=== PATIENT | male | born 1965 | race Caucasian/White ===

== ENCOUNTER 2021-01-11 16:26 | Observation (INO) | payer BC ==
[~2021-01-11] VITALS: Ht 170.2 cm; Wt 86.6 kg
[2021-01-11] MEDS ORDERED: HYDRALAZINE HCL 20 MG/ML VIAL IV STA (17:04)
[2021-01-11 17:45] LABS: BASOPHILS % 0.3 % (0.0-1.0); EOSINOPHILS # (AUTO) 0.1 (0.0-0.4); EOSINOPHILS % 1.4 % (0.0-6.0); HEMATOCRIT 47.3 % (38.2-49.6); HEMOGLOBIN 15.4 g/dL (14.0-18.0); LYMPHOCYTES # (AUTO) 2.8 (1.0-3.2); LYMPHOCYTES % 43.3 % (18.0-39.1); MEAN CORPUSCULAR HEMOGLOBIN 28.3 pg (28-32); MEAN CORPUSCULAR HGB CONC 32.6 g/dL (31-35); MEAN CORPUSCULAR VOLUME 86.8 fL (81-99); MONOCYTES # (AUTO) 0.5 (0.2-0.8); MONOCYTES % 7.3 % (4.4-11.3); NEUTROPHILS % 47.4 % (38.7-80.0); PLATELET COUNT 155 x10e3/uL (140-360); RED BLOOD COUNT 5.45 x10e6/uL (4.3-5.7); RED CELL DISTRIBUTION WIDTH 12.7 % (11.7-14.4)
[2021-01-11 18:00] LABS: ALBUMIN 4.1 g/dL (3.5-5.0); ALBUMIN/GLOBULIN RATIO 0.9 (0.8-2.0); ANION GAP 15.9 mmol/L (8-16); CALCIUM 9.3 mg/dL (8.4-10.2); CREATININE, SERUM 1.89 mg/dL (0.72-1.25); POTASSIUM 3.9 mmol/L (3.5-5.1)
[2021-01-11 18:07] LABS: CREATINE KINASE MB 1.6 ng/mL (0-5.0)
[2021-01-11] MEDS ORDERED: HYDRALAZINE HCL 20 MG/ML VIAL ONE (19:25)
[2021-01-11] MEDS ORDERED: MORPHINE SULFATE INJ 2 MG/ML SYR IV PRN (19:30)
[2021-01-11] MEDS ORDERED: SODIUM CHLORIDE FLUSH 10 ML SYR INJ PRN (19:30)
[2021-01-11] MEDS ORDERED: ONDANSETRON HCL INJ 2MG/ML 2ML 2 MG/ML VIAL IV PRN (19:30)
[2021-01-11] MEDS ORDERED: HYDRALAZINE HCL 20 MG/ML VIAL IV PRN (19:30)
[2021-01-11] MEDS ORDERED: HYDRALAZINE HCL 20 MG/ML VIAL IV NR (19:30)
[2021-01-11] MEDS ORDERED: ASPIRIN 81 MG CHEW TAB PO ONE (19:30)
[2021-01-11] MEDS ORDERED: DEXTROSE 50% SYRINGE 50 ML IV PRN (19:30)
[2021-01-11] MEDS: INSULIN REGULAR, HUMAN 100 UNIT/1 ML 3ML VIAL SQ SCH (20:57)
[2021-01-11 22:00] VITALS: BP 169/104
[2021-01-11 22:30] VITALS: BP 169/104
[2021-01-11] MEDS ORDERED: SODIUM CHLORIDE 0.45% 1,000 ML IV ONE (22:30)
[2021-01-11] MEDS: CARVEDILOL 3.125 MG TAB PO SCH (22:50)
[2021-01-11] MEDS ORDERED: TOUJEO SOL300 UNIT/1 SC (23:24)
[2021-01-11] MEDS ORDERED: METOPROLOL SUCC50 MG PO (23:24)
[2021-01-11] MEDS ORDERED: REVATIO20 MG PO (23:24)
[2021-01-11] MEDS ORDERED: ATORVASTATIN CA20 MG PO (23:24)
[2021-01-12] VITALS (15 sets, daily range): BP systolic 122–158; BP diastolic 78–105
[2021-01-12 00:39] LABS: BASOPHILS % 0.5 % (0.0-1.0); EOSINOPHILS # (AUTO) 0.1 (0.0-0.4); EOSINOPHILS % 1.8 % (0.0-6.0); HEMATOCRIT 44.8 % (38.2-49.6); HEMOGLOBIN 14.6 g/dL (14.0-18.0); LYMPHOCYTES # (AUTO) 2.3 (1.0-3.2); LYMPHOCYTES % 37.2 % (18.0-39.1); MEAN CORPUSCULAR HEMOGLOBIN 27.4 pg (28-32); MEAN CORPUSCULAR HGB CONC 32.6 g/dL (31-35); MEAN CORPUSCULAR VOLUME 84.1 fL (81-99); MONOCYTES # (AUTO) 0.6 (0.2-0.8); MONOCYTES % 9.8 % (4.4-11.3); NEUTROPHILS # (AUTO) 3.1 (2.1-6.9); NEUTROPHILS % 50.5 % (38.7-80.0); PLATELET COUNT 145 x10e3/uL (140-360); RED BLOOD COUNT 5.33 x10e6/uL (4.3-5.7); RED CELL DISTRIBUTION WIDTH 12.9 % (11.7-14.4)
[2021-01-12 01:06] LABS: CREATINE KINASE MB 1.2 ng/mL (0-5.0)
[2021-01-12 01:21] LABS: ALBUMIN 3.5 g/dL (3.5-5.0); ALBUMIN/GLOBULIN RATIO 0.8 (0.8-2.0); ANION GAP 15.6 mmol/L (8-16); CALCIUM 8.9 mg/dL (8.4-10.2); CHOL/HDL RATIO 8.9 (3.9-4.7); CREATININE, SERUM 1.66 mg/dL (0.72-1.25); POTASSIUM 3.6 mmol/L (3.5-5.1)
[2021-01-12] MEDS: INSULIN REGULAR, HUMAN 100 UNIT/1 ML 3ML VIAL SQ SCH ×4 (07:30→21:44)
[2021-01-12] MEDS: CARVEDILOL 3.125 MG TAB PO SCH ×2 (09:20→18:48)
[2021-01-12] MEDS: ASPIRIN 81 MG ENTERIC COATED PO SCH (09:20)
[2021-01-12] MEDS: SODIUM CHLORIDE 0.9% 1000ML 1,000 ML IV SCH ×2 (10:30→21:00)
[2021-01-12] MEDS ORDERED: HEPARIN SOD (PORCINE) 1000 UNIT/ML 30ML ONE (10:32)
[2021-01-12] MEDS ORDERED: LIDOCAINE HCL 2% LOCAL 20 ML VIAL ONE (10:32)
[2021-01-12] MEDS ORDERED: IOPAMIDOL 370 MG/ML 200 ML INFUS..BTL INJ ONE (10:32)
[2021-01-12] MEDS ORDERED: FENTANYL CITRATE/PF 100MCG/2 ML INJ ONE (10:32)
[2021-01-12] MEDS ORDERED: MIDAZOLAM HCL 2 MG/2 ML VIAL ONE (10:32)
[2021-01-12] MEDS ORDERED: NITROGLYCERIN/D5W 200 MCG/ML 250 ML ONE (10:33)
[2021-01-12] MEDS ORDERED: HEPARIN SOD/SOD CHLORIDE 2,000 ML ONE (10:33)
[2021-01-12] MEDS ORDERED: HYDRALAZINE HCL 20 MG/ML VIAL ONE (11:12)
[2021-01-12] MEDS ORDERED: INSULIN GLARGINE 100 UNITS/ML VIAL SQ SCH (21:00)
[2021-01-12] MEDS ORDERED: ATORVASTATIN 40 MG TAB PO SCH (21:00)
[2021-01-12] MEDS ORDERED: ATORVASTATIN 20 MG TAB PO SCH (21:00)
[2021-01-13 01:16] VITALS: BP 160/95
[2021-01-13] MEDS: SODIUM CHLORIDE 0.9% 1000ML 1,000 ML IV SCH (04:59)
[2021-01-13 05:53] VITALS: BP 147/83
[2021-01-13 06:32] LABS: BASOPHILS % 0.1 % (0.0-1.0); EOSINOPHILS # (AUTO) 0.1 (0.0-0.4); EOSINOPHILS % 0.6 % (0.0-6.0); HEMATOCRIT 45.4 % (38.2-49.6); HEMOGLOBIN 14.7 g/dL (14.0-18.0); LYMPHOCYTES # (AUTO) 2.2 (1.0-3.2); MEAN CORPUSCULAR HEMOGLOBIN 27.6 pg (28-32); MEAN CORPUSCULAR HGB CONC 32.4 g/dL (31-35); MEAN CORPUSCULAR VOLUME 85.2 fL (81-99); MONOCYTES # (AUTO) 0.9 (0.2-0.8); MONOCYTES % 10.2 % (4.4-11.3); NEUTROPHILS # (AUTO) 5.4 (2.1-6.9); NEUTROPHILS % 62.8 % (38.7-80.0); PLATELET COUNT 141 x10e3/uL (140-360); RED BLOOD COUNT 5.33 x10e6/uL (4.3-5.7)
[2021-01-13 06:47] LABS: ALBUMIN 3.3 g/dL (3.5-5.0); ALBUMIN/GLOBULIN RATIO 0.8 (0.8-2.0); ANION GAP 11.9 mmol/L (8-16); CALCIUM 8.7 mg/dL (8.4-10.2); CREATININE, SERUM 1.86 mg/dL (0.72-1.25); POTASSIUM 3.9 mmol/L (3.5-5.1)
[2021-01-13 07:13] LABS: THYROID STIMULATING HORMONE 0.904 uIU/mL (0.350-4.940)
[2021-01-13 08:00] VITALS: BP 156/85
[2021-01-13 08:52] VITALS: BP 156/85
[2021-01-13] MEDS ORDERED: CARVEDILOL 3.125 MG TAB PO SCH (09:00)
[2021-01-13] MEDS: ASPIRIN 81 MG ENTERIC COATED PO SCH (09:10)
[2021-01-13] MEDS: INSULIN REGULAR, HUMAN 100 UNIT/1 ML 3ML VIAL SQ SCH ×2 (09:14→13:52)
[2021-01-13] MEDS ORDERED: Atorvastatin PO (09:57)
[2021-01-13] MEDS ORDERED: COREG12.5 MG PO (09:57)
[2021-01-13 12:54] VITALS: BP 140/96
[2021-01-13 14:25] LABS: ANION GAP 13.2 mmol/L (8-16); CALCIUM 8.6 mg/dL (8.4-10.2); CREATININE, SERUM 1.88 mg/dL (0.72-1.25); POTASSIUM 4.2 mmol/L (3.5-5.1)
[2021-01-13] MEDS ORDERED: CARVEDILOL 12.5 MG TAB PO SCH (17:00)
[2021-01-13] MEDS ORDERED: HYDRALAZINE HCL 25 MG TAB PO SCH (17:00)
== END 2021-01-13 16:28 | disposition home or self-care (01) ==
LOC: ER 16:48 → ERHOLD 20:01 → MED/SURG2 21:54
PROVIDERS: ADMIT Internal Medicine; ATTEND Internal Medicine
DX: I16.0 Hypertensive urgency (principal); I25.10 Atherosclerotic heart disease of native coronary artery without angina pectoris; E11.65 Type 2 diabetes mellitus with hyperglycemia; N28.9 Disorder of kidney and ureter, unspecified; I13.10 Hypertensive heart and chronic kidney disease without heart failure, with stage 1 through stage 4 chronic kidney disease, or unspecified chronic kidney disease; E78.5 Hyperlipidemia, unspecified; N18.30 Chronic kidney disease, stage 3 unspecified; E11.22 Type 2 diabetes mellitus with diabetic chronic kidney disease; Z90.49 Acquired absence of other specified parts of digestive tract; Z83.3 Family history of diabetes mellitus
CPT/HCPCS: 36415 ×3; 71045; 76770; 80048; 80053 ×3; 80061; 82550 ×2; 82553 ×2; 82948 ×3; 83036; 83880; 84443; 84484 ×2; 85025 ×3; 93005; 93306; 93458; 96360; 96361; 99284; C1766; C1769; C1887; G0378 ×3; J0360 ×2; J1644; J2001; J2250; J3010; J7030 ×2; Q9967; U0002